=== PATIENT | male | born 1955 | race Caucasian/White ===

== ENCOUNTER → 2016-11-21 | Outpatient (CLI) | payer OTHER | LOC: HEART 5 14:55 | DX: R05 Cough (principal); R94.2 Abnormal results of pulmonary function studies | CPT/HCPCS: 94060 ==

== ENCOUNTER 2021-03-03 00:31 | Inpatient (IN) | payer OTHER ==
[~2021-03-03] VITALS: Ht 193 cm; Wt 166.5 kg
[~2021-03-03 00:31] MED LIST: ACCUPRIL20 MG PO; CARDIZEM CD120 MG PO; COREG 25MG TAB25 MG PO; DIGOXIN250 MCG PO; ECOTRIN81 MG PO; ELIQUIS5 MG PO; GLUCOTROL 10 MG10 MG PO; K-DUR TAB 10 M10 MEQ PO; LASIX40 MG PO; LEVOTHYROXINE50 MCG PO; NIACIN ER1000 MG PO; NOVOLOG FL100 UNIT/1 SQ; PRAVACHOL40 MG PO; PROTONIX40 MG PO; SINGULAIR10 MG PO; VICTOZA 1818 MG/3 ML SQ; ZETIA 10 MG TAB10 MG PO
[2021-03-03 01:02] LABS: HEMOGLOBIN 9.1 gm/dl (14.0-17.5); RED BLOOD COUNT 3.99 M/UL (4.20-5.50); WHITE BLOOD COUNT 8.9 K/UL (4.5-11.0)
[2021-03-03 01:24] LABS: BUN/CREATININE RATIO 14 (0-10)
[2021-03-03] MEDS ORDERED: CEPHALEXIN500 MG PO (04:31)
[2021-03-03] MEDS ORDERED: DOXYCYCLINE HY100 MG PO (04:31)
[2021-03-03] MEDS ORDERED: BACTROBAN OINT22 GM TOP (04:31)
[2021-03-03] MEDS ORDERED: LEVOTHYROXINE88 MCG PO (04:31)
[2021-03-03] MEDS ORDERED: CYCLOBENZAPRINE10 MG PO (04:32)
[2021-03-03] MEDS ORDERED: AMIODARONE HCL200 MG PO (04:32)
[2021-03-03] MEDS ORDERED: METOPROLOL SUCC50 MG PO ×2 (04:32→18:54)
[2021-03-03] MEDS ORDERED: ALDACTONE 25MG25 MG PO (04:35)
[2021-03-03] MEDS ORDERED: BUMETANIDE2 MG PO (04:36)
[2021-03-03] MEDS ORDERED: ZETIA10 MG PO (04:37)
[2021-03-03] MEDS ORDERED: QUETIAPINE FUMA25 MG PO (04:37)
[2021-03-03] MEDS ORDERED: ELIQUIS5 MG PO (04:38)
[2021-03-03] MEDS ORDERED: COMPAZINE 10MG10 MG PO (04:40)
[2021-03-03] MEDS ORDERED: METFORMIN HCL1000 MG PO (04:40)
[2021-03-03] MEDS ORDERED: PRAVASTATIN SOD40 MG PO (04:40)
[2021-03-03] MEDS ORDERED: LEVEMIR FL100 UNIT/1 SQ (15:14)
[2021-03-03] MEDS ORDERED: TRAMADOL HCL50 MG PO (18:55)
[2021-03-03] MEDS ORDERED: DICLOFENAC POTA50 MG PO (18:55)
[2021-03-03] MEDS ORDERED: ENTRESTO 24 MG1 EACH PO (18:57)
[2021-03-04 03:03] LABS: HEMOGLOBIN 8.3 gm/dl (14.0-17.5); RED BLOOD COUNT 3.7 M/UL (4.20-5.50); WHITE BLOOD COUNT 7.2 K/UL (4.5-11.0)
[2021-03-05 03:52] LABS: HEMOGLOBIN 8.3 gm/dl (14.0-17.5); RED BLOOD COUNT 3.72 M/UL (4.20-5.50)
[2021-03-05 06:44] LABS: CREATININE, URINE 132.8 mg/dL (Not Estab.)
[2021-03-06 02:36] LABS: HEMOGLOBIN 8.3 gm/dl (14.0-17.5); RED BLOOD COUNT 3.69 M/UL (4.20-5.50); WHITE BLOOD COUNT 7.8 K/UL (4.5-11.0)
[2021-03-06 09:53] LABS: BORDETELLA PARAPERTUSSIS Not Detected (Not Detectd); BORDETELLA PERTUSSIS Not Detected (Not Detectd); CHLAMYDIA PNEUMONIAE Not Detected (Not Detectd); CORONAVIRUS HKU1 Not Detected (Not Detectd); CORONAVIRUS NL63 Not Detected (Not Detectd); CORONAVIRUS OC43 Not Detected (Not Detectd); CORONOAVIRUS 229E Not Detected (Not Detectd); HUMAN METAPNEUMOVIRUS Not Detected (Not Detectd); HUMAN RHINOVIRUS/ENTEROVIRUS Not Detected (Not Detectd); INFLUENZA A Not Detected (Not Detectd); INFLUENZA B Not Detected (Not Detectd); MYCOPLASMA PNEUMONIAE Not Detected (Not Detectd); PARAINFLUENZA VIRUS 1 Not Detected (Not Detectd); PARAINFLUENZA VIRUS 2 Not Detected (Not Detectd); PARAINFLUENZA VIRUS 3 Not Detected (Not Detectd); PARAINFLUENZA VIRUS 4 Not Detected (Not Detectd); RESPIRATORY SYNCYTIAL VIRUS Not Detected (Not Detectd)
[2021-03-06 11:02] LABS: SARS-CoV-2 NOT DETECTED (Not Detectd)
[2021-03-07 04:23] LABS: HEMOGLOBIN 8.4 gm/dl (14.0-17.5); RED BLOOD COUNT 3.68 M/UL (4.20-5.50); WHITE BLOOD COUNT 6.7 K/UL (4.5-11.0)
[2021-03-08 03:14] LABS: HEMOGLOBIN 8.4 gm/dl (14.0-17.5); RED BLOOD COUNT 3.7 M/UL (4.20-5.50); WHITE BLOOD COUNT 6.9 K/UL (4.5-11.0)
[2021-03-09 02:28] LABS: HEMOGLOBIN 8.2 gm/dl (14.0-17.5); RED BLOOD COUNT 3.7 M/UL (4.20-5.50); WHITE BLOOD COUNT 7.5 K/UL (4.5-11.0)
[2021-03-10 02:41] LABS: HEMOGLOBIN 8.9 gm/dl (14.0-17.5); RED BLOOD COUNT 3.85 M/UL (4.20-5.50); WHITE BLOOD COUNT 7.6 K/UL (4.5-11.0)
[2021-03-13 02:28] LABS: HEMOGLOBIN 9.4 gm/dl (14.0-17.5); RED BLOOD COUNT 3.99 M/UL (4.20-5.50)
[2021-03-14 02:52] LABS: HEMOGLOBIN 9.5 gm/dl (14.0-17.5); RED BLOOD COUNT 4.08 M/UL (4.20-5.50); WHITE BLOOD COUNT 11.1 K/UL (4.5-11.0)
[2021-03-15 02:38] LABS: HEMOGLOBIN 9.4 gm/dl (14.0-17.5); RED BLOOD COUNT 3.99 M/UL (4.20-5.50); WHITE BLOOD COUNT 10.7 K/UL (4.5-11.0)
[2021-03-16 05:29] LABS: HEMOGLOBIN 9.3 gm/dl (14.0-17.5); RED BLOOD COUNT 3.96 M/UL (4.20-5.50); WHITE BLOOD COUNT 10.7 K/UL (4.5-11.0)
[2021-03-17 07:12] LABS: HEMOGLOBIN 9.2 gm/dl (14.0-17.5); RED BLOOD COUNT 4.04 M/UL (4.20-5.50)
[2021-03-17 07:26] LABS: WHITE BLOOD COUNT 13.4 K/UL (4.5-11.0)
[2021-03-17 09:14] LABS: HBSAG SCREEN Negative (Negative); HEP A AB, IGM Negative (Negative); HEP B CORE AB, IGM Negative (Negative); HEP C VIRUS AB 0.1 (0.0-0.9)
--- NOTE | 2021-03-17 22:54 | NUR ---
AT 2253 HOSPITALIST MD WAS NOTIFIED IN A DECLINE IN PATIENT RESPIRATORY STATUS. PATIENT WAS ON AVAPS MODE AT 100% FOI2 AND HAD O2 SATURATION OF 84%. MD TOLD RN TO GET INTUBATION SUPPLIES READY AND TO CALL ER MD FOR INTUBATION. AT 2299 BOTH HOSPITALIST MD AND ER MD ON FLOOR TO SEE PATIENT. SUPPLIES WERE PREPPED FOR INTUBATION AND ER MD WAS POSITIONED AT THE HEAD OF THE BED. AT 2311 30 MG OF ETOMIDATE WAS GIVEN WITH A 10 ML FLUSH BEHIND IT. AT 2312 90 MG OF SUCC. WAS GIVEN WITH A 10 ML FLUSH BEHIND IT. ER MD ADVANCED TUBE WITH THE ASSISTANCE OF THE LARYNGSCOPE WITH TUBE POSITIONED AT 23 AT THE LIP AT 2313. XRAY WAS CALLED TO COME FOR STAT CXR AT 2315 TO CONFIRM TUBE PLACEMENT. REPSIRATORY WAS ASSISTING WITH RESPIRATIONS WITH AMBU BAG AT THIS TIME. AT 2319 ABG WAS RECIEVED. AT 2327 50 MG OF ROCC WAS GIVEN WITH A 10 ML FLUSH BEHIND IT. REPORT WAS GIVEN TO JOSE STYLES AT 2115.
[2021-03-18 00:08] LABS: HEMOGLOBIN 10.4 gm/dl (14.0-17.5); RED BLOOD COUNT 4.41 M/UL (4.20-5.50)
[2021-03-18 00:22] LABS: WHITE BLOOD COUNT 18.3 K/UL (4.5-11.0)
--- NOTE | 2021-03-18 03:14 | NUR ---
PLEASE SEE PROGRESS NOTES AND CODE SHEET. PATIENT ARRIVED TO UNIT AT 2355 FROM PCU IN RESPIRATORY DISTRESS DR PHELPS NOTIFIED OF PATIENT STATUS UPON ARRIVAL ORDERS TO CALL SOCIAL MEDIA DEVELOPER NOTED SOCIAL MEDIA DEVELOPER WAS CALLED AT 2355 PATIENT PROCEEDED TO DECLINE IN STATUS DR ROCHA AND PULMONOLOGY WERE CALLED WELL PULMONOLOGY MEDICAL ADVISOR ARRIVED AT BEDSIDE PATIENT PROCEEDED TO CODE. FAMILY NOTIFIED AND REQUESTED CPR BE STOPPED AT BEDSIDE TIME OF 0107.
--- NOTE | 2021-03-18 08:31 | NUR ---
AWAITING REJI ARRIVAL FOR CORNEAL TRANSPLANT. ICE PACKS WERE REMOVED AND REPLACED WITH NEW ONES.
--- NOTE | 2021-03-18 10:56 | NUR ---
REJI CALLED BACK AND DECLINED PATIENT A DONOR DUE TO HIGH LACTIC ACID LEVELS PER HOUSE SUPERISOR NOLA. [facility] [place] NOTIFIED OF PATIENT BEING READY FOR PICKUP. [facility] NOTIFIED WELL. PT READY TO PICKUP.
== END 2021-03-18 01:07 | disposition expired | DRG 291 ==
LOC: ER1 00:31 → CDU 03:54 → PROG CARE 03:54 → CCU 03-17 23:30
PROVIDERS: Emergency Medicine; Internal Medicine; Internal Medicine Infectious Disease; Internal Medicine Nephrology; ADMIT Internal Medicine
PROC: 5A1935Z Respiratory Ventilation, Less than 24 Consecutive Hours (ICD-10-PCS; principal; 2021-03-03)
PROC: 0BH17EZ Insertion of Endotracheal Airway into Trachea, Via Natural or Artificial Opening (ICD-10-PCS; principal; 2021-03-03)
PROC: B24BZZZ Ultrasonography of Heart with Aorta (ICD-10-PCS; 2021-03-03)
PROC: 3E033XZ Introduction of Vasopressor into Peripheral Vein, Percutaneous Approach (ICD-10-PCS; 2021-03-18)
PROC: 5A12012 Performance of Cardiac Output, Single, Manual (ICD-10-PCS; 2021-03-18)
PROC: 02HV33Z Insertion of Infusion Device into Superior Vena Cava, Percutaneous Approach (ICD-10-PCS; 2021-03-18)
PROC: 5A1D70Z Performance of Urinary Filtration, Intermittent, Less than 6 Hours Per Day (ICD-10-PCS; 2021-03-18)
DX: I13.2 Hypertensive heart and chronic kidney disease with heart failure and with stage 5 chronic kidney disease, or end stage renal disease (principal); I50.23 Acute on chronic systolic (congestive) heart failure; J96.21 Acute and chronic respiratory failure with hypoxia; J18.9 Pneumonia, unspecified organism; N18.6 End stage renal disease; N17.9 Acute kidney failure, unspecified; I48.20 Chronic atrial fibrillation, unspecified; Z68.41 Body mass index [BMI] 40.0-44.9, adult; E66.2 Morbid (severe) obesity with alveolar hypoventilation; R04.2 Hemoptysis; E87.1 Hypo-osmolality and hyponatremia; G93.40 Encephalopathy, unspecified; Z66 Do not resuscitate; I42.9 Cardiomyopathy, unspecified; Z20.822 Contact with and (suspected) exposure to COVID-19; I27.20 Pulmonary hypertension, unspecified; I08.3 Combined rheumatic disorders of mitral, aortic and tricuspid valves; E03.9 Hypothyroidism, unspecified; D63.1 Anemia in chronic kidney disease; I87.8 Other specified disorders of veins; E87.5 Hyperkalemia; E11.22 Type 2 diabetes mellitus with diabetic chronic kidney disease; I46.9 Cardiac arrest, cause unspecified; D50.9 Iron deficiency anemia, unspecified; E78.5 Hyperlipidemia, unspecified; R04.0 Epistaxis; E11.65 Type 2 diabetes mellitus with hyperglycemia; R80.9 Proteinuria, unspecified; R53.81 Other malaise; Z79.3 Long term (current) use of hormonal contraceptives; Z79.01 Long term (current) use of anticoagulants; Z79.4 Long term (current) use of insulin; Z90.89 Acquired absence of other organs; Z83.3 Family history of diabetes mellitus; Z90.49 Acquired absence of other specified parts of digestive tract; Z85.038 Personal history of other malignant neoplasm of large intestine; Z88.8 Allergy status to other drugs, medicaments and biological substances; Z99.81 Dependence on supplemental oxygen; Z87.891 Personal history of nicotine dependence; Z82.49 Family history of ischemic heart disease and other diseases of the circulatory system
CPT/HCPCS: ECHO; 0240U; 36415; 36600; 71045; 71046; 71250; 80048; 80053; 80061; 80074; 80162; 80307; 81001; 82043; 82272; 82436; 82550; 82553; 82565; 82570; 82575; 82607; 82652; 82746; 82803; 82962; 83036; 83540; 83550; 83605; 83735; 83874; 83880; 84100; 84132; 84133; 84156; 84300; 84439; 84443; 84484; 84550; 85025; 85027; 85045; 85610; 85730; 86140; 87070; 87077; 87186; 87205; 87633; 92526; 92610; 92950; 93005; 93306; 94002; 94640; 94660; 94760; 97110; 97110-GP-CQ; 97163; 97166; 97530; 97530-GP-CQ; 99285; A6212; J0171; J0282; J0330; J1205; J1335; J1756; J1940; J2185; J2270; J2405; J2704; J2930; J7070; P9047; U0002